=== PATIENT | female | born 1960 | race Caucasian/White ===

== ENCOUNTER → 2017-07-10 | Outpatient (CLI) | payer OTHER ==
--- NOTE | 2017-07-10 11:34 | BD ---
EXAMINATION TYPE: MG DEXA axial skeleton. DATE OF EXAM: 07/10/2017 CLINICAL HISTORY: Menopausal screening. Height: 63.25 Weight: 140 pounds FRAX RISK QUESTIONS: Alcohol (3 or more units per day): no Family History (Parent hip fracture): no Glucocorticoids (More than 3mos): no (Ex: prednisone, prednisolone, methylprednisolone, dexamethasone, and hydrocortisone). History of Fracture in Adulthood: yes, thumb as young adult Secondary Osteoporosis: 1. Type 1 Diabetes: no 2. Hyperthyroidism: no 3. Menopause before 45: no 4. Malnutrition: no 5. Chronic liver disease: no Rheumatoid Arthritis: no Current Tobacco Use: yes RISK FACTORS HISTORY OF: Surgery to Spine/Hip(right/left)/Wrist (right/left): no Family History of Osteoporosis: no Active: yes Diet low in dairy products/other sources of calcium: no Postmenopausal woman: yes Take estrogen and/or progesterone medications: no Lost more than 2 inches in height since high school: no Frequent falls: no Poor Health: no Hyperparathyroidism: no Adrenal Insufficiency: no MEDICATIONS: Prednisone or other steroids: no Thyroid Medications: no Osteoporosis Medications: no Additional Medications: cholesterol meds Additional History: osteoarthritis cervical & lumbar regions EXAM MEASUREMENTS: Bone mineral densitometry was performed using the [employer] System. Bone mineral density as measured about the Lumbar spine is: ----- L1-L4(G/cm2): 1.170 T Score Values are as follows: ----- L2: -0.3 ----- L3: 0.4 ----- L4: -0.4 ----- L1-L4: -0.1 Bone mineral density BASELINE Bone mineral density about the R hip (g/cm2): 0.931 Bone mineral density about the L hip (g/cm2): 0.902 T Score values are as follows: -----R Neck: -0.8 -----L Neck: -1.0 -----R Total: -0.3 -----L Total: -0.6 Bone mineral density BASELINE IMPRESSION: 1. Normal (Values between +1 and -1 indicate normal bone mass). Consider repeating this study in 5 y ears or sooner if there is some new clinical indication. NOTE: T-SCORE=SD OF THE YOUNG ADULT MEAN.
--- NOTE | 2017-07-11 10:59 | MM ---
Reason for exam: screening (asymptomatic). Last mammogram was performed 6 years and 3 months ago. History: Family history of breast cancer in sister at age 55. Physical Findings: A clinical breast exam by your physician is recommended on an annual basis and results should be correlated with mammographic findings. MG 3D Screening Mammo W/Cad Bilateral CC and MLO view(s) were taken. Prior study comparison: April 12, 2011, bilateral digital screening mammo w/CAD. December 11, 2006, mammogram, performed at [facility]. There are scattered fibroglandular densities. No significant changes when compared with prior studies. ASSESSMENT: Benign, BI-RAD 2 RECOMMENDATION: Routine screening mammogram of both breasts in 1 year.
== END | disposition home or self-care (01) ==
LOC: RADMAMWWP 07:54
PROVIDERS: ATTEND Family Medicine
DX: Z12.31 Encounter for screening mammogram for malignant neoplasm of breast (principal); N95.1 Menopausal and female climacteric states
CPT/HCPCS: 77080; 77063; G0202

== ENCOUNTER → 2019-03-01 | Outpatient (CLI) | payer OTHER ==
--- NOTE | 2019-03-01 15:37 | XR ---
EXAMINATION TYPE: XR chest 2V DATE OF EXAM: 03/01/2019 COMPARISON: NONE TECHNIQUE: PA and lateral views submitted. HISTORY: Pain FINDINGS: The lungs are clear and there is no pneumothorax, pleural effusion, or focal pneumonia. Hyperinflat ion correlate for COPD. Atherosclerotic change aorta. Hypertrophic change vertebral column. Could not exclude a retrocardiac nodule. Correlate with CT scan. IMPRESSION: 1. No acute process. Cannot exclude a 1 cm retrocardiac nodule on the left recommend CT scan.
--- NOTE | 2019-03-01 15:39 | XR ---
EXAMINATION TYPE: XR abdomen 1V DATE OF EXAM: 03/01/2019 COMPARISON: NONE HISTORY: Pain TECHNIQUE: One view abdominal series FINDINGS: The osseous structures are intact. The bowel gas pattern is nonspecific. Curvature the spine. There is retained fecal debris throughout the colon. Correlate for constipation. Degenerative change of the vertebral column. IMPRESSION: 1. Nonspecific abdomen. Correlate for constipation.
== END | disposition home or self-care (01) ==
LOC: RADXRMAIN 15:04
PROVIDERS: ATTEND Family Medicine
DX: R10.12 Left upper quadrant pain (principal); R07.81 Pleurodynia
CPT/HCPCS: 71046; 74018

== ENCOUNTER → 2019-03-04 | Outpatient (CLI) | payer OTHER ==
--- NOTE | 2019-03-04 08:32 | CT ---
EXAMINATION TYPE: CT chest w con DATE OF EXAM: 03/04/2019 COMPARISON: Radiograph 03/01/2019 HISTORY: 59-year-old female other nonspecific abnormal findings of lung patrick. Pain under left ribs TECHNIQUE: Contiguous axial scanning of the chest after the administration of 100 mL of Isovue 300. Coronal/sagittal reconstructions performed. CT DLP: 333.1mGycm. Automatic exposure control utilized for a dose reduction. FINDINGS: Heart normal size with trace anterior pericardial fluid. Coronary vessel calcifications are present. Aorta normal caliber with mild arch calcifications and conventional arch vessel branching anatomy. No thoracic lymphadenopathy by CT size criteria. Visualized upper abdomen shows a prominent centrally located right hepatic lobe cyst partially exophy tic inferiorly measuring up to 5.7 cm. Bilateral adrenal nodularity measuring 1.9 cm the right and 1. 4 cm left. While visually, there appear relatively low density, attenuation is indeterminate on this postcontrast study. Six-month follow-up recommended. Mild diffuse bronchial wall thickening. Some scattered areas of mild subpleural atelectasis such as i n the anteromedial left lung and medial basilar right middle lobe. No consolidation or pleural effusion. The questioned retrocardiac pulmonary nodule on radiograph appe ars to correspond to summation artifact. Bones: No osseous destructive process. Facet arthropathy cervicothoracic junction with grade 1 albino listhesis. There is a very subtle nondisplaced left lateral eighth rib fracture, or transaxial image 47, coronal image 35, and sagittal image 102. IMPRESSION: 1. Very subtle nondisplaced fracture of the left lateral eighth rib. 2. Mild diffuse bronchial wall thickening could represent bronchitis or asthma. Some scattered strand y atelectasis is present but otherwise without acute process. 3. No suspicious pulmonary nodules. Questioned radiographic finding corresponds to summation artifact . 4. Bilateral adrenal nodularity measuring up to 1.9 cm, probable adrenal adenomas. 6 month follow-up adrenal mass protocol CT recommended. 5. 5.7 cm partially exophytic cyst central right liver lobe.
== END | disposition home or self-care (01) ==
LOC: RADCTMAIN 07:17
PROVIDERS: ATTEND Family Medicine
DX: S22.32XA Fracture of one rib, left side, initial encounter for closed fracture (principal); J98.11 Atelectasis; R91.8 Other nonspecific abnormal finding of lung field
CPT/HCPCS: 71260; Q9967

== ENCOUNTER 2020-01-16 07:23 | Inpatient (IN) | payer OTHER ==
[2020-01-16] MEDS ORDERED: ONDANSETRON 4 MG/2 ML VIAL IVP STA (07:39)
[2020-01-16] MEDS ORDERED: MORPHINE SULFATE 4 MG/ML SYRINGE IV STA (07:39)
[2020-01-16] MEDS ORDERED: SODIUM CHLORIDE 0.9% 1,000 ML IV STA (07:39)
--- NOTE | 2020-01-16 07:42 | ED ---
Abdominal Pain HPI - General Chief Complaint: Abdominal Pain Stated Complaint: Abd Pain Time Seen by Provider: 01/16/20 07:31 Source: patient, RN notes reviewed Mode of arrival: ambulatory Limitations: no limitations - History of Present Illness Initial Comments: This a 59-year-old female presents emergency Department chief complaint of right lower quadrant abdominal discomfort. Patient states started primarily on Friday states has really worsened. She states that any pressure over abdomen movement make it worse. She states she's had slight nausea without any episodes of vomiting diarrhea. She states she's not had a bowel movement in a few days no prior abdominal surgeries. She states that she had a low-grade fever at home. She has no complaints of dysuria or hematuria. Patient has no complaints chest pain, shortness breath, headache or dizziness. - Related Data Allergies Allergy/AdvReac Type Severity Reaction Status Date / Time No Known Allergies Allergy Verified 01/16/20 07:29 Review of Systems ROS Statement: Those systems with pertinent positive or pertinent negative responses have been documented in the HPI. ROS Other: All systems not noted in ROS Statement are negative. Past Medical History Past Medical History: Hyperlipidemia History of Any Multi-Drug Resistant Organisms: None Reported Past Surgical History: Tonsillectomy Past Psychological History: Anxiety Smoking Status: Current every day smoker Past Alcohol Use History: Occasional Past Drug Use History: None Reported General Exam Limitations: no limitations General appearance: alert, in no apparent distress Head exam: Present: atraumatic, normocephalic, normal inspection Neck exam: Present: normal inspection, full ROM. Absent: tenderness, meningismus, lymphadenopathy Respiratory exam: Present: normal lung sounds bilaterally. Absent: respiratory distress, wheezes, rales, rhonchi, stridor Cardiovascular Exam: Present: normal rhythm, tachycardia, normal heart sounds. Absent: systolic murmur, diastolic murmur, rubs, gallop, clicks GI/Abdominal exam: Present: soft, tenderness (Moderate right lower quadrant), normal bowel sounds. Absent: distended, guarding, rebound, rigid Back exam: Absent: CVA tenderness (R), CVA tenderness (L) Neurological exam: Present: alert, oriented X3 Skin exam: Present: warm, dry, intact, normal color. Absent: rash Course Vital Signs 01/16/20 07:26 Temperature 98.2 F Pulse Rate 115 H Respiratory 18 Rate Blood Pressure 138/85 O2 Sat by Pulse 99 Oximetry Medical Decision Making - Medical Decision Making CT shows evidence of acute appendicitis. Patient will be admitted to Dr. Peterson with IV antibiotics. - Lab Data Result diagrams: 01/16/20 07:57 01/16/20 07:57 Lab Results 01/16/20 01/16/20 01/16/20 Range/Units 07:40 07:57 07:57 WBC 15.3 H (3.8-10.6) k/uL RBC 4.91 (3.80-5.40) m/uL Hgb 14.3 (11.4-16.0) gm/dL Hct 43.2 (34.0-46.0) % MCV 88.0 (80.0-100.0) fL MCH 29.2 (25.0-35.0) pg MCHC 33.1 (31.0-37.0) g/dL RDW 12.7 (11.5-15.5) % Plt Count 206 (150-450) k/uL Neutrophils % 84 % Lymphocytes % 9 % Monocytes % 5 % Eosinophils % 1 % Basophils % 0 % Neutrophils # 12.8 H (1.3-7.7) k/uL Lymphocytes # 1.3 (1.0-4.8) k/uL Monocytes # 0.7 (0-1.0) k/uL Eosinophils # 0.1 (0-0.7) k/uL Basophils # 0.0 (0-0.2) k/uL Sodium 133 L (137-145) mmol/L Potassium 4.4 (3.5-5.1) mmol/L Chloride 103 (98-107) mmol/L Carbon Dioxide 21 L (22-30) mmol/L Anion Gap 9 mmol/L BUN 8 (7-17) mg/dL Creatinine 0.62 (0.52-1.04) mg/dL Est GFR (CKD-EPI)AfAm >90 (>60 ml/min/1.73 sqM) Est GFR (CKD-EPI)NonAf >90 (>60 ml/min/1.73 sqM) Glucose 127 H (74-99) mg/dL Plasma Lactic Acid Azam (0.7-2.0) mmol/L Calcium 8.8 (8.4-10.2) mg/dL Total Bilirubin 0.7 (0.2-1.3) mg/dL AST 23 (14-36) U/L ALT 25 (4-34) U/L Alkaline Phosphatase 43 (38-126) U/L Total Protein 6.9 (6.3-8.2) g/dL Albumin 4.0 (3.5-5.0) g/dL Lipase 815 H (23-300) U/L Urine Color Yellow Urine Appearance Cloudy H (Clear) Urine pH 6.0 (5.0-8.0) Ur Specific [place] 1.020 (1.001-1.035) Urine Protein Trace H (Negative) Urine Glucose (UA) Negative (Negative) Urine Ketones Negative (Negative) Urine Blood Moderate H (Negative) Urine Nitrite Negative (Negative) Urine Bilirubin Negative (Negative) Urine Urobilinogen 2.0 (<2.0) mg/dL Ur Leukocyte Esterase Small H (Negative) Urine RBC 28 H (0-5) /hpf Urine WBC 2 (0-5) /hpf Ur Squamous Epith Cells 2 (0-4) /hpf Urine Mucus Few H (None) /hpf 01/16/20 Range/Units 07:57 WBC (3.8-10.6) k/uL RBC (3.80-5.40) m/uL Hgb (11.4-16.0) gm/dL Hct (34.0-46.0) % MCV (80.0-100.0) fL MCH (25.0-35.0) pg MCHC (31.0-37.0) g/dL RDW (11.5-15.5) % Plt Count (150-450) k/uL Neutrophils % % Lymphocytes % % Monocytes % % Eosinophils % % Basophils % % Neutrophils # (1.3-7.7) k/uL Lymphocytes # (1.0-4.8) k/uL Monocytes # (0-1.0) k/uL Eosinophils # (0-0.7) k/uL Basophils # (0-0.2) k/uL Sodium (137-145) mmol/L Potassium (3.5-5.1) mmol/L Chloride (98-107) mmol/L Carbon Dioxide (22-30) mmol/L Anion Gap mmol/L BUN (7-17) mg/dL Creatinine (0.52-1.04) mg/dL Est GFR (CKD-EPI)AfAm (>60 ml/min/1.73 sqM) Est GFR (CKD-EPI)NonAf (>60 ml/min/1.73 sqM) Glucose (74-99) mg/dL Plasma Lactic Acid Azam 0.9 (0.7-2.0) mmol/L Calcium (8.4-10.2) mg/dL Total Bilirubin (0.2-1.3) mg/dL AST (14-36) U/L ALT (4-34) U/L Alkaline Phosphatase (38-126) U/L Total Protein (6.3-8.2) g/dL Albumin (3.5-5.0) g/dL Lipase (23-300) U/L Urine Color Urine Appearance (Clear) Urine pH (5.0-8.0) Ur Specific [place] (1.001-1.035) Urine Protein (Negative) Urine Glucose (UA) (Negative) Urine Ketones (Negative) Urine Blood (Negative) Urine Nitrite (Negative) Urine Bilirubin (Negative) Urine Urobilinogen (<2.0) mg/dL Ur Leukocyte Esterase (Negative) Urine RBC (0-5) /hpf Urine WBC (0-5) /hpf Ur Squamous Epith Cells (0-4) /hpf Urine Mucus (None) /hpf Disposition Clinical Impression: Acute appendicitis Disposition: ADMITTED IP TO THIS HOSP Condition: Fair Referrals: Vladimir Fernandez DO [Primary Care Provider] - 1-2 days
[2020-01-16 08:12] LABS: Basophils % (A) 0 %; Eosinophils # (A) 0.1 k/uL (0-0.7); Eosinophils % (A) 1 %; HCT 43.2 % (34.0-46.0); HGB 14.3 gm/dL (11.4-16.0); Lymphocytes # (A) 1.3 k/uL (1.0-4.8); Lymphocytes % (A) 9 %; MCH 29.2 pg (25.0-35.0); MCHC 33.1 g/dL (31.0-37.0); Mean Platelet Volume 8.4; Monocytes # (A) 0.7 k/uL (0-1.0); Monocytes % (A) 5 %; Neutrophils # (A) 12.8 k/uL (1.3-7.7); Neutrophils % (A) 84 %; Platelet Count 206 k/uL (150-450); RBC 4.91 m/uL (3.80-5.40); RDW 12.7 % (11.5-15.5); WBC 15.3 k/uL (3.8-10.6)
[2020-01-16 08:22] LABS: ALT 25 U/L (4-34); AST 23 U/L (14-36); African American GFR (CKD) >90 (>60 ml/min/1.73 sqM); Alkaline Phosphatase 43 U/L (38-126); Anion Gap 9 mmol/L; Blood Urea Nitrogen 8 mg/dL (7-17); Calcium 8.8 mg/dL (8.4-10.2); Carbon Dioxide 21 mmol/L (22-30); Chloride 103 mmol/L (98-107); Glucose 127 mg/dL (74-99); Non-African American GFR(CKD) >90 (>60 ml/min/1.73 sqM); Potassium 4.4 mmol/L (3.5-5.1); Sodium 133 mmol/L (137-145); Total Bilirubin 0.7 mg/dL (0.2-1.3); Total Protein 6.9 g/dL (6.3-8.2)
[2020-01-16 08:29] LABS: Appearance,Urine Cloudy (Clear); Bilirubin,Urine Negative (Negative); Blood,Urine Moderate (Negative); Color,Urine Yellow; Glucose,Urine (UA) Negative (Negative); Ketones,Urine Negative (Negative); Leukocyte Esterase,Urine Small (Negative); Mucus,Urine Few /hpf; Nitrite,Urine Negative (Negative); Protein,Urine Trace (Negative); RBC,Urine 28 /hpf (0-5); Squamous Epithelial Cell,Urine 2 /hpf (0-4); WBC,Urine 2 /hpf (0-5)
--- NOTE | 2020-01-16 08:49 | CT ---
EXAMINATION TYPE: CT abdomen pelvis w con DATE OF EXAM: 01/16/2020 REFERENCE: NONE HISTORY: RLQ pain HISTORY: RLQ pain CT DLP: 833.3 mGy Automated exposure control for dose reduction was used. TECHNIQUE: Helical acquisition through the abdomen and pelvis was obtained following the oral ingesti on of without Oral Contrast and following intravenous administration of 100 ml mL of Isovue 300. The data was reformatted in axial, coronal and sagittal projections. FINDINGS: Visualized portions of the lungs are clear. There is approximately 5.5 mm of pericardial f luid or thickening anteriorly. There is no pleural fluid. Within the abdomen, the liver is normal in size without biliary dilatation. There is a prominent, sim ple appearing, 4.8 cm cystic lesion in the caudate lobe. The liver is otherwise unremarkable. The gal lbladder is normal. The spleen is unremarkable. There are bilateral adrenal masses. The right-sided mass measures 1.6 cm in the left-sided mass measu res 1.3 cm. These are both low in attenuation and likely represent adenomas. Both kidneys demonstrate function and appear morphologically normal. The pancreas is unremarkable. There is mild to moderate atheromatous calcification of the visualized arterial tree. There is no sig nificant retroperitoneal, iliac or inguinal adenopathy. The bladder is unremarkable. The uterus and ovaries are unremarkable. There are scattered diverticula within the sigmoid colon and left side of the colon. There is no radi ographic evidence of diverticulitis. There is a moderate amount of fecal material present on the righ t. There is some pericecal inflammatory change and some pericecal fluid. The appendix is not clearly visualized separate from this. Small bowel loops are normal in caliber. No free air is seen. No free fluid is identified. There is mild facet arthropathy in the L5-S1 facets.. IMPRESSION: 1. PERICECAL INFLAMMATORY CHANGE AND A SMALL AMOUNT OF PERICECAL FLUID WITHOUT A DRAINABLE ABSCESS. T HE APPENDIX IS NOT DISTINGUISHED SEPARATE FROM THIS. IF THE PATIENT DOES NOT HAVE A HISTORY OF APPEND ECTOMY THIS WOULD BE CONSISTENT WITH ACUTE APPENDICITIS. IF THE PATIENT HAS HAD HER APPENDIX OUT, TYP HLITIS COULD GIVE THIS APPEARANCE. 2. SIMPLE APPEARING HEPATIC CYST WITHIN THE CAUDATE LOBE OF THE LIVER.
[2020-01-16] MEDS ORDERED: PIPERACILLIN-TAZOBACTAM 3.375 GM in SODIUM CHLORIDE 0.9% 100 ML IVPB STA (08:53)
[2020-01-16] MEDS ORDERED: NALOXONE 0.4 MG/ML 1 ML VIAL IV PRN ×2 (08:55→15:04)
[2020-01-16] MEDS ORDERED: ONDANSETRON 4 MG/2 ML VIAL IVP PRN (08:55)
--- NOTE | 2020-01-16 11:07 | P.GSHP ---
History of Present Illness H&P Date: 01/16/20 Chief Complaint: Right lower quadrant pain This is a 5-year-old female who presents with a three-day history of right lower quadrant pain. Patient underwent CAT scan emergency room found have evidence of acute appendicitis. Past Medical History Past Medical History: Hyperlipidemia History of Any Multi-Drug Resistant Organisms: None Reported Past Surgical History: Tonsillectomy Past Psychological History: Anxiety Smoking Status: Current every day smoker Past Alcohol Use History: Occasional Past Drug Use History: None Reported Medications and Allergies Allergies Allergy/AdvReac Type Severity Reaction Status Date / Time No Known Allergies Allergy Verified 01/16/20 07:29 Surgical - Exam Vital Signs Temp Pulse Resp BP Pulse Ox 98.2 F 115 H 18 138/85 99 01/16/20 07:26 01/16/20 07:26 01/16/20 07:26 01/16/20 07:26 01/16/20 07:26 - General well developed, well nourished, no distress - Eyes PERRL - ENT normal pinna - Neck no masses - Respiratory normal expansion - Cardiovascular Rhythm: regular - Abdomen Tender right lower quadrant pain at McBurney's point Abdomen: soft Results - Labs 01/16/20 07:57 01/16/20 07:57 Abnormal Lab Results - Last 24 Hours (Table) 01/16/20 01/16/20 01/16/20 Range/Units 07:40 07:57 07:57 WBC 15.3 H (3.8-10.6) k/uL Neutrophils # 12.8 H (1.3-7.7) k/uL Sodium 133 L (137-145) mmol/L Carbon Dioxide 21 L (22-30) mmol/L Glucose 127 H (74-99) mg/dL Lipase 815 H (23-300) U/L Urine Appearance Cloudy H (Clear) Urine Protein Trace H (Negative) Urine Blood Moderate H (Negative) Ur Leukocyte Esterase Small H (Negative) Urine RBC 28 H (0-5) /hpf Urine Mucus Few H (None) /hpf Diabetes panel 01/16/20 Range/Units 07:57 Sodium 133 L (137-145) mmol/L Potassium 4.4 (3.5-5.1) mmol/L Chloride 103 (98-107) mmol/L Carbon Dioxide 21 L (22-30) mmol/L BUN 8 (7-17) mg/dL Creatinine 0.62 (0.52-1.04) mg/dL Glucose 127 H (74-99) mg/dL Calcium 8.8 (8.4-10.2) mg/dL AST 23 (14-36) U/L ALT 25 (4-34) U/L Alkaline Phosphatase 43 (38-126) U/L Total Protein 6.9 (6.3-8.2) g/dL Albumin 4.0 (3.5-5.0) g/dL Calcium panel 01/16/20 Range/Units 07:57 Calcium 8.8 (8.4-10.2) mg/dL Albumin 4.0 (3.5-5.0) g/dL Pituitary panel 01/16/20 Range/Units 07:57 Sodium 133 L (137-145) mmol/L Potassium 4.4 (3.5-5.1) mmol/L Chloride 103 (98-107) mmol/L Carbon Dioxide 21 L (22-30) mmol/L BUN 8 (7-17) mg/dL Creatinine 0.62 (0.52-1.04) mg/dL Glucose 127 H (74-99) mg/dL Calcium 8.8 (8.4-10.2) mg/dL Adrenal panel 01/16/20 Range/Units 07:57 Sodium 133 L (137-145) mmol/L Potassium 4.4 (3.5-5.1) mmol/L Chloride 103 (98-107) mmol/L Carbon Dioxide 21 L (22-30) mmol/L BUN 8 (7-17) mg/dL Creatinine 0.62 (0.52-1.04) mg/dL Glucose 127 H (74-99) mg/dL Calcium 8.8 (8.4-10.2) mg/dL Total Bilirubin 0.7 (0.2-1.3) mg/dL AST 23 (14-36) U/L ALT 25 (4-34) U/L Alkaline Phosphatase 43 (38-126) U/L Total Protein 6.9 (6.3-8.2) g/dL Albumin 4.0 (3.5-5.0) g/dL Assessment and Plan Assessment: Acute appendicitis. Patient will undergo laparoscopic appendectomy today.
[2020-01-16] MEDS: SODIUM CHLORIDE 0.9% 1,000 ML IV SCH ×2 (12:29→21:08)
[2020-01-16] MEDS: MORPHINE SULFATE 4 MG/ML SYRINGE IV PRN (12:38)
[2020-01-16] MEDS ORDERED: BUPIVACAIN-EPI 0.25%-1:200,000 30 ML VIAL SQ ONE (13:41)
[2020-01-16] MEDS ORDERED: PHENYLEPHRINE-0.9% NACL SYG 1 MG/10 ML SYRINGE ONE (14:20)
[2020-01-16] MEDS ORDERED: ROCURONIUM BROMIDE 10 MG/ML 5 ML VIAL IV ONE (14:20)
[2020-01-16] MEDS ORDERED: NEOSTIGMINE 1 MG/ML 10 ML VIAL ONE (14:20)
[2020-01-16] MEDS ORDERED: fentaNYL (PF) 50 MCG/ML 2 ML AMP ONE (14:20)
[2020-01-16] MEDS ORDERED: PROPOFOL 10 MG/ML 20 ML VIAL IV ONE (14:20)
[2020-01-16] MEDS ORDERED: GLYCOPYRROLATE 0.2 MG/ML 2 ML VIAL ONE (14:20)
[2020-01-16] MEDS ORDERED: MIDAZOLAM 2 MG/2 ML VIAL ONE (14:20)
[2020-01-16] MEDS ORDERED: SUCCINYLCHOLINE CHLORIDE 100 MG/5 ML SYR IV ONE (14:20)
[2020-01-16] MEDS ORDERED: LIDOCAINE 1% INJ 10MG/ML (20 ML MDV) ONE (14:20)
[2020-01-16] MEDS ORDERED: SODIUM CHLORIDE 0.9% 1,000 ML IV ONE (14:23)
[2020-01-16] MEDS ORDERED: ceFAZolin 1,000 MG VIAL IVPB ONE (14:35)
[2020-01-16] MEDS ORDERED: LACTATED RINGERS 1,000 ML IV ONE ×2 (15:04→15:59)
[2020-01-16] MEDS ORDERED: METOCLOPRAMIDE 5 MG/ML 2 ML VIAL IVP PRN (15:04)
[2020-01-16] MEDS ORDERED: ACETAMINOPHEN TAB 325 MG TAB PO PRN (15:04)
--- NOTE | 2020-01-16 15:04 | P.OP ---
Date of Procedure: 01/16/20 Preoperative Diagnosis: Acute appendicitis Postoperative Diagnosis: Perforated appendicitis Procedure(s) Performed: Laparoscopic appendectomy Anesthesia: NILSA Surgeon: Hemant Peterson IV fluids (ml): 5 Pathology: other (Appendix) Condition: stable Disposition: PACU Description of Procedure: The patient's placed on the operating table in the supine position. The patient received general anesthesia. The abdomen was prepped and draped in the usual sterile fashion. The skin was anesthetized 1% local Xylocaine at the trocar sites. Using an 11 blade the skin was incised at the umbilicus. The umbilicus was grasped with a [place] clamp and then a Veress needle was placed into the peritoneal cavity. Position of the Veress needle was confirmed with positive drop test. After adequate insufflation a 5 mm trocar was placed into the peritoneal cavity. The abdomen was further insufflated. And then the laparoscope was placed in the peritoneal cavity. Next a 5 mm trocar was placed in the midline suprapubic position. And then a 10 mm trocar was placed in the midline epigastric position. The patient was rotated with the right side up and in Trendelenburg. The appendix was visualized. The appendix appeared to be inflamed. There appeared to be perforation near the base the appendix. The appendix was grasped and then using the Harmonic scissors the mesoappendix was divided. A PDS Endoloop was then placed around the base of the appendix. And then the appendix was divided using Harmonic scissors. The appendix was placed into an Endo Catch and brought out through the 10 mm trocar site. The abdomen was irrigated. There is no bleeding seen. The trochars withdrawn. The skin was closed interrupted 3-0 Monocryl suture. Dermabond dressing was applied. Patient was sent to recovery room in stable condition.
[2020-01-16] MEDS: HYDROmorphone 0.5 MG/0.5 ML SYRINGE IVP PRN ×2 (15:41→15:47)
[2020-01-16] MEDS: HYDROcodone/APAP 5-325MG 1 EACH TAB PO PRN (22:18)
[2020-01-17 06:29] LABS: Basophils % (A) 0 %; Eosinophils % (A) 0 %; HCT 38.2 % (34.0-46.0); HGB 11.9 gm/dL (11.4-16.0); Lymphocytes # (A) 1.4 k/uL (1.0-4.8); Lymphocytes % (A) 13 %; MCH 28.5 pg (25.0-35.0); MCHC 31.2 g/dL (31.0-37.0); MCV 91.3 fL (80.0-100.0); Mean Platelet Volume 8.9; Monocytes # (A) 0.6 k/uL (0-1.0); Monocytes % (A) 5 %; Neutrophils # (A) 9.1 k/uL (1.3-7.7); Neutrophils % (A) 80 %; Platelet Count 153 k/uL (150-450); RBC 4.18 m/uL (3.80-5.40); RDW 12.9 % (11.5-15.5); WBC 11.4 k/uL (3.8-10.6)
[2020-01-17 06:45] LABS: African American GFR (CKD) >90 (>60 ml/min/1.73 sqM); Anion Gap 2 mmol/L; Blood Urea Nitrogen 7 mg/dL (7-17); Calcium 7.8 mg/dL (8.4-10.2); Carbon Dioxide 21 mmol/L (22-30); Chloride 110 mmol/L (98-107); Glucose 88 mg/dL (74-99); Non-African American GFR(CKD) >90 (>60 ml/min/1.73 sqM); Potassium 4.1 mmol/L (3.5-5.1); Sodium 133 mmol/L (137-145)
[2020-01-17] MEDS: HYDROcodone/APAP 5-325MG 1 EACH TAB PO PRN ×3 (07:38→19:40)
[2020-01-17] MEDS: ENOXAPARIN 40 MG/0.4 ML SYRINGE SQ SCH (07:39)
[2020-01-17] MEDS: PIPERACILLIN-TAZOBACTAM 3.375 GM in SODIUM CHLORIDE 0.9% 100 ML IVPB SCH ×2 (10:04→18:40)
--- NOTE | 2020-01-17 10:22 | P.PN ---
Subjective Progress Note Date: 01/17/20 CHIEF COMPLAINT: Abdominal pain HISTORY OF PRESENT ILLNESS: Patient is status post laparoscopic appendectomy. Postop day #1. Patient examined at the bedside. Patient states her pain is tolerable. Tolerating diet. Denies nausea or vomiting. PHYSICAL EXAM: VITAL SIGNS: Reviewed. GENERAL: Well-developed in no acute distress. HEENT: No sclera icterus. Extraocular movements grossly intact. Moist buccal mucosa. Head is atraumatic, normocephalic. ABDOMEN: Soft. Nondistended. Appropriate surgical tenderness. Surgical sites clean dry and intact. NEUROLOGIC: Alert and oriented. Cranial nerves II through XII grossly intact. ASSESSMENT: 1. Abdominal pain 2. Acute appendicitis with microperforation PLAN: -Continue diet as tolerated -Pain control -Continue IV antibiotics -Anticipate discharge home tomorrow Nurse practitioner note has been reviewed by physician. Signing provider agrees with the documented findings, assessment, and plan of care. Objective - Vital Signs Vital signs: Vital Signs Temp 99.2 F 01/17/20 05:00 Pulse 100 01/17/20 05:00 Resp 18 01/17/20 05:00 BP 151/70 01/17/20 05:00 Pulse Ox 93 L 01/17/20 05:00 Intake & Output 01/16/20 01/17/20 01/17/20 18:59 06:59 18:59 Intake Total 1330 825 Output Total 5 Balance 1325 825 Weight 73.074 kg Intake: IV 600 Intake, IV Titration 250 825 Amount Piperacillin-Tazobactam 3 100 .375 gm In Sodium Chloride 0.9% 100 ml @ 200 mls/hr IVPB ONCE STA Rx#:[id number] Sodium Chloride 0.9% 1, 150 825 000 ml @ 75 mls/hr IV . [id number] [facility] Rx#:[id number] Oral 480 Output: Estimated Blood Loss 5 Other: Voiding Method Toilet Toilet # Voids 2 1 - Labs CBC & Chem 7: 01/18/20 05:30 01/17/20 05:22 Labs: Abnormal Lab Results - Last 24 Hours (Table) 01/17/20 01/17/20 Range/Units 05:22 05:22 WBC 11.4 H (3.8-10.6) k/uL Neutrophils # 9.1 H (1.3-7.7) k/uL Sodium 133 L (137-145) mmol/L Chloride 110 H (98-107) mmol/L Carbon Dioxide 21 L (22-30) mmol/L Calcium 7.8 L (8.4-10.2) mg/dL
[2020-01-17] MEDS: MORPHINE SULFATE 4 MG/ML SYRINGE IV PRN (10:25)
[2020-01-17] MEDS: SODIUM CHLORIDE 0.9% 1,000 ML IV SCH (10:26)
--- NOTE | 2020-01-17 12:36 | P.CONS ---
History of Present Illness - Reason for Consult Consult date: 01/17/20 Medical management - History of Present Illness This is a 59-year-old female patient of Dr. Fernandez with past medical history of hyperlipidemia, generalized anxiety disorder, tobacco use and dependence. Patient complains of abdominal pain that started Friday evening on the right side. She denies having any vomiting but the pain continued to worsen and became very intense with radiation to the back. She denies any bowel movement. She denies diarrhea. Patient presented to [facility] emergency center for evaluation CAT scan of the abdomen and pelvis revealed pericecal inflammatory change and a small amount of pericecal fluid without drainable abscess. Appendix is not distinguished supper from this. This could be consistent with acute appendicitis. Simple hepatic cyst. WBC 15.3, hemoglobin 14.3, platelet count 206. Sodium 133, potassium 4.4, chloride 103, CO2 21, BUN 8, creatinine 0.62, blood sugar 127. Liver function tests within normal limits, lipase 815. Patient has been admitted to the [facility] floor under the care of Dr. Peterson status post laparoscopic appendectomy for perforated appendicitis completed yesterday. Temperature max is been 100.7 and white count has improved to 11.4. Pain is currently controlled. She is not passing gas but she is burping fr equently. She states she feels a little nauseated. Review of Systems Constitutional: Denies anorexia, Denies chills, Denies fatigue, Denies fever, Denies lethargy, Denies weakness, Denies weight loss Eyes: denies blurred vision, denies pain Ears, nose, mouth and throat: Denies headache, Denies nasal congestion, Denies nasal discharge, Denies sore throat, Denies vertigo Cardiovascular: Denies chest pain, Denies decreased exercise tolerance, Denies dyspnea on exertion, Denies edema, Denies leg edema, Denies lightheadedness, Denies shortness of breath, Denies syncope Respiratory: Denies cough, Denies cough with sputum, Denies dyspnea, Denies excessive sputum, Denies hemoptysis, Denies home oxygen, Denies respiratory infections, Denies wheezing Gastrointestinal: Reports abdominal pain, Reports loss of appetite, Denies BRBPR, Denies constipation, Denies diarrhea, Denies hematemesis, Denies hematochezia, Denies jaundice, Denies melena, Denies nausea, Denies vomiting Genitourinary: Denies dysuria, Denies hematuria, Denies urgency, Denies urinary frequency Musculoskeletal: Denies frequent falls, Denies gait dysfunction, Denies muscle weakness, Denies myalgias Integumentary: Denies pruritus, Denies rash, Denies wounds Neurological: Denies change in mentation, Denies change in speech, Denies gait dysfunction, Denies numbness, Denies weakness Psychiatric: Denies anxiety, Denies depression Endocrine: Denies fatigue, Denies weight change Past Medical History Past Medical History: Hyperlipidemia History of Any Multi-Drug Resistant Organisms: None Reported Past Surgical History: Appendectomy, Tonsillectomy Past Psychological History: Anxiety Smoking Status: Current every day smoker Past Alcohol Use History: Occasional Additional Past Alcohol Use History / Comment(s): Patient is a smoker of half a pack per day and has been smoking approximately 45 years. She drinks alcohol occasionally. Past Drug Use History: None Reported - Past Family History Father Family Medical History: Hearing Disorder / Deafness, Hyperlipidemia Additional Family Medical History / Comment(s): Father at age 65 from a myocardial infarction. Mother Family Medical History: Rheumatoid Arthritis (RA) Additional Family Medical History / Comment(s): Mother at age 66 from a perforated bowel with history of rheumatoid arthritis. Brother(s) Additional Family Medical History / Comment(s): Patient has 1 brother alive and he has suffered from a myocardial infarction. Sister(s) Additional Family Medical History / Comment(s): Patient has 3 sisters with no major medical problems. Patient has 1 son and 1 daughter with no major medical problems. Medications and Allergies Home Medications Medication Instructions Recorded Confirmed Type Jhucksf-[id number]-[id number] 2 tab PO Q4HR PRN 01/16/20 01/16/20 History [Excedrin] LORazepam [Ativan] 0.5 - 1 mg PO BID PRN 01/16/20 01/16/20 History Naproxen Sodium [Aleve] 440 mg PO DAILY PRN 01/16/20 01/16/20 History Simvastatin [Zocor] 20 mg PO HS 01/16/20 01/16/20 History Hydrocodone/Acetaminophen [[place] 1 tab PO Q6HR PRN #10 tab 03/30/20 Rx 5-325] Allergies Allergy/AdvReac Type Severity Reaction Status Date / Time No Known Allergies Allergy Verified 01/16/20 11:15 Physical Exam Vitals: Vital Signs Temp Pulse Pulse Pulse Pulse Resp BP 01/17/20 05:00 99.2 F 100 18 01/16/20 23:56 99.1 F 01/16/20 22:18 100.7 F H 01/16/20 19:23 98.0 F 104 H 18 01/16/20 17:05 94 01/16/20 16:50 85 01/16/20 16:35 95 01/16/20 16:20 98.5 F 88 16 01/16/20 16:01 90 18 01/16/20 16:00 90 94 16 01/16/20 15:46 95 18 01/16/20 15:31 86 18 01/16/20 15:09 96.9 F L 90 18 01/16/20 12:06 99 16 01/16/20 10:33 99.1 F 99 16 01/16/20 09:40 97.9 F 80 16 117/61 BP Pulse Ox 01/17/20 05:00 151/70 93 L 01/16/20 23:56 01/16/20 22:18 01/16/20 19:23 112/75 98 01/16/20 17:05 111/67 01/16/20 16:50 105/58 98 01/16/20 16:35 98/60 96 01/16/20 16:20 91/57 96 01/16/20 16:01 90/52 97 01/16/20 16:00 01/16/20 15:46 95/51 94 L 01/16/20 15:31 101/58 97 01/16/20 15:09 96/54 97 01/16/20 12:06 01/16/20 10:33 130/58 96 01/16/20 09:40 100 Intake and Output 01/16/20 01/17/20 01/17/20 22:59 06:59 14:59 Intake Total 905 600 Balance 905 600 Intake: IV 200 Intake, IV Titration 225 600 Amount Sodium Chloride 0.9% 1, 225 600 000 ml @ 75 mls/hr IV . [id number] [facility] Rx#:[id number] Oral 480 Other: Voiding Method Toilet Toilet # Voids 2 1 Gen: This is a 59-year-old female. Patient is resting in bed appears to be comfortable and in no acute distress. HEENT: Head is atraumatic, normocephalic. Pupils equal, round. Sclerae is anicteric. NECK: Supple. No JVD. No lymphadenopathy. No thyromegaly. LUNGS: Clear to auscultation. No wheezes or rhonchi. No intercostal retractions. HEART: Regular rate and rhythm. No murmur. ABDOMEN: Soft. Bowel sounds are present. No masses. Mild right sided tenderness. EXTREMITIES: No pedal edema. No calf tenderness. Dorsalis pedis +2 bilaterally. NEUROLOGICAL: Patient is awake, alert and oriented x3. Cranial nerves 2 through 12 are grossly intact. Results CBC & Chem 7: 01/17/20 05:22 01/17/20 05:22 Labs: Abnormal Lab Results - Last 24 Hours (Table) 01/17/20 01/17/20 Range/Units 05:22 05:22 WBC 11.4 H (3.8-10.6) k/uL Neutrophils # 9.1 H (1.3-7.7) k/uL Sodium 133 L (137-145) mmol/L Chloride 110 H (98-107) mmol/L Carbon Dioxide 21 L (22-30) mmol/L Calcium 7.8 L (8.4-10.2) mg/dL Assessment and Plan Plan: 1. Acute ruptured appendicitis status post laparoscopic appendectomy, postop day #1. Patient will be started on Zosyn IV piggyback every 8 hours. Continue current pain management, Zofran as needed for nausea, incentive spirometry to reduce incidence of atelectasis and hospital-acquired pneumonia, IV fluids at 75 mL per hour. Diet is regular for lunch today. 2. Hyperlipidemia. Patient is on simvastatin 20 mg at bedtime at home. 3. Generalized anxiety disorder. Continue lorazepam 0.5 mg twice daily. 4. Tobacco use and dependence. 5. GI prophylaxis. Protonix. 6. DVT prophylaxis. Lovenox 40 mg daily. CODE STATUS: Full code Discharge plan: home Impression and plan of care have been directed as dictated by the signing physi cian. Yecenia Stanley nurse practitioner acting as scribe for signing physician.
[2020-01-18] MEDS: PIPERACILLIN-TAZOBACTAM 3.375 GM in SODIUM CHLORIDE 0.9% 100 ML IVPB SCH ×3 (01:38→18:42)
[2020-01-18] MEDS: SODIUM CHLORIDE 0.9% 1,000 ML IV SCH ×2 (01:40→14:50)
[2020-01-18] MEDS: HYDROcodone/APAP 5-325MG 1 EACH TAB PO PRN ×2 (04:57→10:51)
[2020-01-18 06:02] LABS: Basophils % (A) 0 %; Eosinophils % (A) 0 %; HCT 35.5 % (34.0-46.0); HGB 11.4 gm/dL (11.4-16.0); Lymphocytes # (A) 0.9 k/uL (1.0-4.8); Lymphocytes % (A) 8 %; MCH 29.3 pg (25.0-35.0); MCHC 32.2 g/dL (31.0-37.0); MCV 90.8 fL (80.0-100.0); Mean Platelet Volume 9.1; Monocytes # (A) 0.4 k/uL (0-1.0); Monocytes % (A) 4 %; Neutrophils # (A) 9.3 k/uL (1.3-7.7); Neutrophils % (A) 86 %; Platelet Count 179 k/uL (150-450); RBC 3.91 m/uL (3.80-5.40); RDW 12.8 % (11.5-15.5); WBC 10.8 k/uL (3.8-10.6)
[2020-01-18] MEDS: ENOXAPARIN 40 MG/0.4 ML SYRINGE SQ SCH (10:46)
[2020-01-18] MEDS: PANTOPRAZOLE 40 MG TABLET PO SCH (10:46)
--- NOTE | 2020-01-18 12:01 | P.PN ---
Subjective Progress Note Date: 01/18/20 CHIEF COMPLAINT: Abdominal pain HISTORY OF PRESENT ILLNESS: Patient is status post laparoscopic appendectomy. Postop day #2. Patient examined at the bedside. Patient states her pain is tolerable. Tolerating diet. Denies nausea or vomiting. Patient with a low-grade temperature of 99.8 overnight. 98.2 this morning. She is mildly tachycardic. CBC 10.8. PHYSICAL EXAM: VITAL SIGNS: Reviewed. GENERAL: Well-developed in no acute distress. HEENT: No sclera icterus. Extraocular movements grossly intact. Moist buccal mucosa. Head is atraumatic, normocephalic. ABDOMEN: Soft. Nondistended. Appropriate surgical tenderness. Surgical sites clean dry and intact. NEUROLOGIC: Alert and oriented. Cranial nerves II through XII grossly intact. ASSESSMENT: 1. Abdominal pain 2. Acute appendicitis with microperforation PLAN: -Continue diet as tolerated -Pain control -Continue IV antibiotics -Hold discharge today secondary to tachycardia and mild fever. Anticipate discharge home tomorrow Nurse practitioner note has been reviewed by physician. Signing provider agrees with the documented findings, assessment, and plan of care. Objective - Vital Signs Vital signs: Vital Signs Temp 98.2 F 01/18/20 11:28 Pulse 115 H 01/18/20 11:28 Resp 18 01/18/20 11:28 BP 122/67 01/18/20 11:28 Pulse Ox 94 L 01/18/20 11:28 Intake & Output 01/17/20 01/18/20 01/18/20 18:59 06:59 18:59 Intake Total 500 Balance 500 Intake: Intake, IV Titration 500 Amount Piperacillin-Tazobactam 3 200 .375 gm In Sodium Chloride 0.9% 100 ml @ 25 mls/hr IVPB Q8HR [facility] Rx# :[id number] Sodium Chloride 0.9% 1, 300 000 ml @ 75 mls/hr IV . [id number] [facility] Rx#:[id number] Other: Voiding Method Toilet Toilet # Voids 3 1 1 - Labs CBC & Chem 7: 01/18/20 05:30 01/17/20 05:22 Labs: Abnormal Lab Results - Last 24 Hours (Table) 01/18/20 Range/Units 05:30 WBC 10.8 H (3.8-10.6) k/uL Neutrophils # 9.3 H (1.3-7.7) k/uL Lymphocytes # 0.9 L (1.0-4.8) k/uL
--- NOTE | 2020-01-18 14:30 | P.PN ---
Subjective Progress Note Date: 01/18/20 This is a 59-year-old female patient of Dr. Fernandez with past medical history of hyperlipidemia, generalized anxiety disorder, tobacco use and dependence. Patient complains of abdominal pain that started Tong evening on the right side. She denies having any vomiting but the pain continued to worsen and became very intense with radiation to the back. She denies any bowel movement. She denies diarrhea. Patient presented to [facility] emergency center for evaluation CAT scan of the abdomen and pelvis revealed pericecal inflammatory change and a small amount of pericecal fluid without drainable abscess. Appendix is not distinguished supper from this. This could be consistent with acute appendicitis. Simple hepatic cyst. WBC 15.3, hemoglobin 14.3, platelet count 206. Sodium 133, potassium 4.4, chloride 103, CO2 21, BUN 8, creatinine 0.62, blood sugar 127. Liver function tests within normal limits, lipase 815. Patient has been admitted to the [facility] floor under the care of Dr. Peterson status post laparoscopic appendectomy for perforated appendicitis completed yesterday. Temperature max is been 100.7 and white count has improved to 11.4. Pain is currently controlled. She is not passing gas but she is burping frequently. She states she feels a little nauseated. 01/17: Patient states that she is not feeling well today. She states she did not sleep and only about an hour at a time during the night. She states she is eating a little bit but not much. She is passing gas but has not had a bowel movement. She is also complaining of headache. Temperature max 99.8, heart rate has been running between 109 and 115. Blood pressure 122/67, pulse ox 94% on room air. WBC 10.8. Objective - Vital Signs Vital signs: Vital Signs Temp 99.8 F H 01/18/20 04:38 Pulse 109 H 01/18/20 04:38 Resp 20 01/18/20 04:38 BP 113/72 01/18/20 04:38 Pulse Ox 93 L 01/18/20 04:38 Intake & Output 01/17/20 01/18/20 01/18/20 18:59 06:59 18:59 Intake Total 500 Balance 500 Intake: Intake, IV Titration 500 Amount Piperacillin-Tazobactam 3 200 .375 gm In Sodium Chloride 0.9% 100 ml @ 25 mls/hr IVPB Q8HR [facility] Rx# :[id number] Sodium Chloride 0.9% 1, 300 000 ml @ 75 mls/hr IV . [id number] [facility] Rx#:[id number] Other: Voiding Method Toilet # Voids 3 1 - Exam Review of Systems Constitutional: Denies anorexia, Denies chills, reports fatigue, Denies fever, Denies lethargy, Denies weakness, Denies weight loss Eyes: denies blurred vision, denies pain Ears, nose, mouth and throat: Reports headache, Denies nasal congestion, Denies nasal discharge, Denies sore throat, Denies vertigo Cardiovascular: Denies chest pain, Denies decreased exercise tolerance, Denies dyspnea on exertion, Denies edema, Denies leg edema, Denies lightheadedness, Denies shortness of breath, Denies syncope Respiratory: Denies cough, Denies cough with sputum, Denies dyspnea, Denies excessive sputum, Denies hemoptysis, Denies home oxygen, Denies respiratory infections, Denies wheezing Gastrointestinal: Reports abdominal pain, Reports loss of appetite, Denies BRBPR, Denies constipation, Denies diarrhea, Denies hematemesis, Denies hematochezia, Denies jaundice, Denies melena, Denies nausea, Denies vomiting Genitourinary: Denies dysuria, Denies hematuria, Denies urgency, Denies urinary frequency Musculoskeletal: Denies frequent falls, Denies gait dysfunction, Denies muscle weakness, Denies myalgias Integumentary: Denies pruritus, Denies rash, Denies wounds Neurological: Denies change in mentation, Denies change in speech, Denies gait dysfunction, Denies numbness, Denies weakness Psychiatric: Denies anxiety, Denies depression Endocrine: Denies fatigue, Denies weight change Physical examination Gen: This is a 59-year-old female. Patient is resting in bed appears to be in no acute distress. HEENT: Head is atraumatic, normocephalic. Pupils equal, round. Sclerae is anicteric. NECK: Supple. No JVD. No lymphadenopathy. No thyromegaly. LUNGS: Clear to auscultation. No wheezes or rhonchi. No intercostal retractions. HEART: Regular rate and rhythm. No murmur. ABDOMEN: Soft. Bowel sounds are present. No masses. Mild right sided tenderness. EXTREMITIES: No pedal edema. No calf tenderness. Dorsalis pedis +2 bilaterally. NEUROLOGICAL: Patient is awake, alert and oriented x3. Cranial nerves 2 through 12 are grossly intact. - Labs CBC & Chem 7: 01/18/20 05:30 01/17/20 05:22 Labs: Abnormal Lab Results - Last 24 Hours (Table) 01/18/20 Range/Units 05:30 WBC 10.8 H (3.8-10.6) k/uL Neutrophils # 9.3 H (1.3-7.7) k/uL Lymphocytes # 0.9 L (1.0-4.8) k/uL Assessment and Plan Plan: 1. Acute ruptured appendicitis status post laparoscopic appendectomy, postop day #2. Continue Zosyn IV piggyback every 8 hours. Continue current pain management, Zofran as needed for nausea, incentive spirometry to reduce incidence of atelectasis and hospital-acquired pneumonia, IV fluids discontinued. Regular diet. Leukocytosis is improving. Patient noted to have low-grade fever and tachycardia. Continue to monitor closely. 2. Hyperlipidemia. Patient is on simvastatin 20 mg at bedtime at home. 3. Generalized anxiety disorder. Continue lorazepam 0.5 mg twice daily. 4. Tobacco use and dependence. 5. GI prophylaxis. Protonix. 6. DVT prophylaxis. Lovenox 40 mg daily. CODE STATUS: Full code Discharge plan: home Impression and plan of care have been directed as dictated by the signing physician. Yecenia Stanley nurse practitioner acting as scribe for signing physician.
[2020-01-18 21:03] VITALS: RESP 16
[2020-01-19] MEDS: PIPERACILLIN-TAZOBACTAM 3.375 GM in SODIUM CHLORIDE 0.9% 100 ML IVPB SCH ×2 (00:03→08:19)
[2020-01-19] MEDS: HYDROcodone/APAP 5-325MG 1 EACH TAB PO PRN ×2 (00:10→04:55)
[2020-01-19] MEDS: SODIUM CHLORIDE 0.9% 1,000 ML IV SCH (03:08)
[2020-01-19 04:17] VITALS: BP 111/78; PULSE 88; TEMP 97.9
[2020-01-19] MEDS: PANTOPRAZOLE 40 MG TABLET PO SCH (08:19)
[2020-01-19] MEDS: ENOXAPARIN 40 MG/0.4 ML SYRINGE SQ SCH (08:19)
--- NOTE | 2020-01-19 11:45 | P.DS ---
Providers Date of admission: 01/16/20 10:21 Expected date of discharge: 01/19/20 Attending physician: Hemant Peterson Consults: 01/16/20 15:04 Consult Physician Routine Consulting Provider: Paula Jose Consult Reason/Comments: Medical management Do you want consulting provider notified?: Yes Primary care physician: Vladimir Marlborough Hospital Course: This a 5-year-old female who underwent laparoscopic appendectomy for acute perforated appendicitis. Patient did well postoperatively. Please chart for details. Procedures: Laparoscopic appendectomy Patient Condition at Discharge: Fair Plan - Discharge Summary Discharge Rx Participant: No New Discharge Prescriptions: New Hydrocodone/Acetaminophen [[place] 5-325] 1 tab PO Q6HR PRN #10 tab PRN Reason: Pain Levofloxacin [Levaquin] 500 mg PO DAILY 7 Days #7 tab No Action Simvastatin [Zocor] 20 mg PO HS Naproxen Sodium [Aleve] 440 mg PO DAILY PRN PRN Reason: Pain Umqlwwg-[id number] [id number] [Excedrin] 2 tab PO Q4HR PRN PRN Reason: Migraine Headache LORazepam [Ativan] 0.5 - 1 mg PO BID PRN PRN Reason: Anxiety Discharge Medication List Etjcldr-Qinp-Kdrr [id number] [Excedrin] 2 tab PO Q4HR PRN 01/16/20 [History] LORazepam [Ativan] 0.5 - 1 mg PO BID PRN 01/16/20 [History] Naproxen Sodium [Aleve] 440 mg PO DAILY PRN 01/16/20 [History] Simvastatin [Zocor] 20 mg PO HS 01/16/20 [History] Hydrocodone/Acetaminophen [[place] 5-325] 1 tab PO Q6HR PRN #10 tab 01/17/20 [Rx] Levofloxacin [Levaquin] 500 mg PO DAILY 7 Days #7 tab 01/18/20 [Rx] Follow up Appointment(s)/Referral(s): Vladimir Fernandez DO [Primary Care Provider] - 1 Week Hemant Peterson MD [STAFF PHYSICIAN] - 1 Week Activity/Diet/Wound Care/Special Instructions: No driving while taking [place] No lifting over 10 pounds You may shower. No soaking or tub baths Very light activity until you are reevaluated at your follow up appointment with your surgeon Discharge Disposition: HOME SELF-CARE
--- NOTE | 2020-01-19 13:50 | P.PN ---
Subjective Progress Note Date: 01/19/20 This is a 59-year-old female patient of Dr. Fernandez with past medical history of hyperlipidemia, generalized anxiety disorder, tobacco use and dependence. Patient complains of abdominal pain that started Tong evening on the right side. She denies having any vomiting but the pain continued to worsen and became very intense with radiation to the back. She denies any bowel movement. She denies diarrhea. Patient presented to [facility] emergency center for evaluation CAT scan of the abdomen and pelvis revealed pericecal inflammatory change and a small amount of pericecal fluid without drainable abscess. Appendix is not distinguished supper from this. This could be consistent with acute appendicitis. Simple hepatic cyst. WBC 15.3, hemoglobin 14.3, platelet count 206. Sodium 133, potassium 4.4, chloride 103, CO2 21, BUN 8, creatinine 0.62, blood sugar 127. Liver function tests within normal limits, lipase 815. Patient has been admitted to the [facility] floor under the care of Dr. Peterson status post laparoscopic appendectomy for perforated appendicitis completed yesterday. Temperature max is been 100.7 and white count has improved to 11.4. Pain is currently controlled. She is not passing gas but she is burping frequently. She states she feels a little nauseated. 01/17: Patient states that she is not feeling well today. She states she did not sleep and only about an hour at a time during the night. She states she is eating a little bit but not much. She is passing gas but has not had a bowel movement. She is also complaining of headache. Temperature max 99.8, heart rate has been running between 109 and 115. Blood pressure 122/67, pulse ox 94% on room air. WBC 10.8. 01/18: Patient has been afebrile with no low-grade fevers for 24 hours. Heart rate in the 80s, blood pressure 111/78, pulse ox 95% on room air. Patient's abdominal pain is controlled. Wounds show no signs of infection. Patient is tolerating diet. Patient is clear from medicine for discharge. Objective - Vital Signs Vital signs: Vital Signs Temp 97.9 F 01/19/20 04:15 Pulse 88 01/19/20 04:15 Resp 16 01/19/20 04:15 BP 111/78 01/19/20 04:15 Pulse Ox 95 01/19/20 04:15 Intake & Output 01/18/20 01/19/20 01/19/20 18:59 06:59 18:59 Intake Total 700 2200 Balance 700 2200 Intake: Intake, IV Titration 700 1000 Amount Piperacillin-Tazobactam 3 100 100 .375 gm In Sodium Chloride 0.9% 100 ml @ 25 mls/hr IVPB Q8HR [facility] Rx# :[id number] Sodium Chloride 0.9% 1, 600 900 000 ml @ 75 mls/hr IV . [id number] [facility] Rx#:[id number] Oral 1200 Other: Voiding Method Toilet Toilet # Voids 1 2 - Exam Review of Systems Constitutional: Denies anorexia, Denies chills, reports fatigue, Denies fever, Denies lethargy, Denies weakness, Denies weight loss Eyes: denies blurred vision, denies pain Ears, nose, mouth and throat: Reports headache, Denies nasal congestion, Denies nasal discharge, Denies sore throat, Denies vertigo Cardiovascular: Denies chest pain, Denies decreased exercise tolerance, Denies dyspnea on exertion, Denies edema, Denies leg edema, Denies lightheadedness, Denies shortness of breath, Denies syncope Respiratory: Denies cough, Denies cough with sputum, Denies dyspnea, Denies excessive sputum, Denies hemoptysis, Denies home oxygen, Denies respiratory infections, Denies wheezing Gastrointestinal: Denies abdominal pain, denies loss of appetite, Denies BRBPR, Denies constipation, Denies diarrhea, Denies hematemesis, Denies hematochezia, Denies jaundice, Denies melena, Denies nausea, Denies vomiting Genitourinary: Denies dysuria, Denies hematuria, Denies urgency, Denies urinary frequency Musculoskeletal: Denies frequent falls, Denies gait dysfunction, Denies muscle weakness, Denies myalgias Integumentary: Denies pruritus, Denies rash, Denies wounds Neurological: Denies change in mentation, Denies change in speech, Denies gait dysfunction, Denies numbness, Denies weakness Psychiatric: Denies anxiety, Denies depression Endocrine: Denies fatigue, Denies weight change Physical examination Gen: This is a 59-year-old female. Patient is resting in bed appears to be in no acute distress. HEENT: Head is atraumatic, normocephalic. Pupils equal, round. Sclerae is an icteric. NECK: Supple. No JVD. No lymphadenopathy. No thyromegaly. LUNGS: Clear to auscultation. No wheezes or rhonchi. No intercostal retractions. HEART: Regular rate and rhythm. No murmur. ABDOMEN: Soft. Bowel sounds are present. No masses. Mild right sided tenderness. Surgical wound sites show no signs of infection. EXTREMITIES: No pedal edema. No calf tenderness. Dorsalis pedis +2 bila terally. NEUROLOGICAL: Patient is awake, alert and oriented x3. Cranial nerves 2 through 12 are grossly intact. - Labs CBC & Chem 7: 01/18/20 05:30 01/17/20 05:22 Assessment and Plan Plan: 1. Acute ruptured appendicitis status post laparoscopic appendectomy, postop day #2. Continue Zosyn IV piggyback every 8 hours. Continue current pain management, Zofran as needed for nausea, incentive spirometry to reduce incidence of atelectasis and hospital-acquired pneumonia, IV fluids discontinued. Regular diet. Leukocytosis is improving. Patient noted to have low-grade fever and tachycardia which is also improved. Continue to monitor closely. Patient is cleared for discharge from medicine. 2. Hyperlipidemia. Patient is on simvastatin 20 mg at bedtime at home. 3. Generalized anxiety disorder. Continue lorazepam 0.5 mg twice daily. 4. Tobacco use and dependence. 5. GI prophylaxis. Protonix. 6. DVT prophylaxis. Lovenox 40 mg daily. CODE STATUS: Full code Discharge plan: home Impression and plan of care have been directed as dictated by the signing physician. Yecenia Stanley nurse practitioner acting as scribe for signing physician.
== END 2020-01-19 13:50 | disposition home or self-care (01) | DRG 340 ==
LOC: EC 07:23 → 5NMEDONC 10:21
PROVIDERS: ADMIT Surgery; ATTEND Surgery
PROC: 0DTJ4ZZ Resection of Appendix, Percutaneous Endoscopic Approach (ICD-10-PCS; principal; 2020-01-16 09:41)
DX: K35.32 Acute appendicitis with perforation, localized peritonitis, and gangrene, without abscess (principal); K76.89 Other specified diseases of liver; E78.5 Hyperlipidemia, unspecified; F17.200 Nicotine dependence, unspecified, uncomplicated; R00.0 Tachycardia, unspecified; F41.1 Generalized anxiety disorder; R51 Headache; Z71.6 Tobacco abuse counseling; Z79.899 Other long term (current) drug therapy; Z98.890 Other specified postprocedural states; Z82.49 Family history of ischemic heart disease and other diseases of the circulatory system; Z82.61 Family history of arthritis; Z83.79 Family history of other diseases of the digestive system; Z84.89 Family history of other specified conditions
CPT/HCPCS: 36415; 74177; 80048; 80053; 81001; 83605; 83690; 85025; 88304; 96361; 96365; 96375; 99285

== ENCOUNTER → 2021-04-04 | Outpatient (CLI) | payer OTHER ==
--- NOTE | 2021-04-04 16:07 | XR ---
EXAMINATION TYPE: XR chest 2V DATE OF EXAM: 04/04/2021 COMPARISON: Chest x-ray 03/01/2019 HISTORY: History tobacco use, bronchitis TECHNIQUE: Frontal and lateral views of the chest are obtained. FINDINGS: There is no focal air space opacity, pleural effusion, or pneumothorax seen. The cardiac silhouette size is within normal limits. Aorta is dense. There is bronchial wall thickening. The oss eous structures are intact. IMPRESSION: Correlate for bronchitis, reactive airways disease.
== END | disposition home or self-care (01) ==
LOC: RADXRMAIN 14:38
PROVIDERS: ATTEND Family Medicine
DX: J40 Bronchitis, not specified as acute or chronic (principal); Z87.891 Personal history of nicotine dependence
CPT/HCPCS: 71046

== ENCOUNTER 2021-07-04 17:26 | Observation (INO) | payer OTHER ==
[2021-07-04] MEDS ORDERED: NITROGLYCERIN OINT 1 INCH/GM PACKET TOPICAL STA (17:51)
[2021-07-04] MEDS ORDERED: ASPIRIN 81 MG PO STA (17:51)
[2021-07-04 18:04] LABS: Basophils % (A) 1 %; Eosinophils # (A) 0.1 k/uL (0-0.7); Eosinophils % (A) 1 %; HCT 41.7 % (34.0-46.0); HGB 14.1 gm/dL (11.4-16.0); Lymphocytes % (A) 32 %; MCH 30.9 pg (25.0-35.0); MCHC 33.7 g/dL (31.0-37.0); MCV 91.8 fL (80.0-100.0); Mean Platelet Volume 8.8; Monocytes # (A) 0.4 k/uL (0-1.0); Monocytes % (A) 6 %; Neutrophils # (A) 3.7 k/uL (1.3-7.7); Neutrophils % (A) 58 %; Platelet Count 207 k/uL (150-450); RBC 4.55 m/uL (3.80-5.40); RDW 12.4 % (11.5-15.5); WBC 6.3 k/uL (3.8-10.6)
[2021-07-04 18:15] LABS: Albumin 3.9 g/dL (3.5-5.0); Calcium 9.3 mg/dL (8.4-10.2); Potassium 4.4 mmol/L (3.5-5.1); Total Bilirubin 0.4 mg/dL (0.2-1.3); Total Protein 6.8 g/dL (6.3-8.2)
--- NOTE | 2021-07-04 18:17 | XR ---
EXAMINATION TYPE: XR chest 2V DATE OF EXAM: 07/04/2021 COMPARISON: NONE HISTORY: Bronchitis TECHNIQUE: 2 views FINDINGS: Heart and mediastinum are normal. Lungs are clear. Diaphragm is normal. Bony thorax is inta ct. There are chest leads. IMPRESSION: No active cardiopulmonary disease. Normal heart. No change.
[2021-07-04 18:18] LABS: INR 0.9 (<1.2); Partial Thromboplastin Time 24.1 sec (22.0-30.0); Prothrombin Time 9.8 sec (9.0-12.0)
--- NOTE | 2021-07-04 18:35 | ED ---
General Adult HPI - General Chief complaint: Chest Pain Stated complaint: chest pain Time Seen by Provider: 07/04/21 17:30 Source: patient, RN notes reviewed, old records reviewed Mode of arrival: wheelchair Limitations: no limitations - History of Present Illness Initial comments: This is a 61-year-old female who presents emergency department with past medical history significant for smoking and high cholesterol. Patient also has a strong family history of heart disease. Patient states that 3 days she's been having significant chest pressure and some shortness of breath in particular she's noticed her pressure and her shortness of breath worsening with any exertion. Patient denies any recent fever chills or significant cough. Patient denies any palpitations. Patient states she has some slight lightheadedness but no near syncopal episode. Patient denies any abdominal pain. Patient denies any nausea vomiting diarrhea. Patient denies any headache or numbness or weakness. - Related Data Home Medications Medication Instructions Recorded Confirmed [id number] 2 tab PO Q4HR PRN 01/16/20 01/16/20 [Excedrin] LORazepam [Ativan] 0.5 - 1 mg PO BID PRN 01/16/20 01/16/20 Naproxen Sodium [Aleve] 440 mg PO DAILY PRN 01/16/20 01/16/20 Simvastatin [Zocor] 20 mg PO HS 01/16/20 01/16/20 Previous Rx's Medication Instructions Recorded Hydrocodone/Acetaminophen [[place] 1 tab PO Q6HR PRN #10 tab 01/17/20 5-325] Levofloxacin [Levaquin] 500 mg PO DAILY 7 Days #7 tab 01/18/20 Allergies Allergy/AdvReac Type Severity Reaction Status Date / Time No Known Allergies Allergy Verified 07/04/21 17:30 Review of Systems ROS Statement: Those systems with pertinent positive or pertinent negative responses have been documented in the HPI. ROS Other: All systems not noted in ROS Statement are negative. Past Medical History Past Medical History: Hyperlipidemia History of Any Multi-Drug Resistant Organisms: None Reported Past Surgical History: Appendectomy, Tonsillectomy Past Psychological History: Anxiety Smoking Status: Current every day smoker Past Alcohol Use History: Occasional Past Drug Use History: None Reported - Past Family History Father Family Medical History: Hearing Disorder / Deafness, Hyperlipidemia Additional Family Medical History / Comment(s): Father at age 65 from a myocardial infarction. Mother Family Medical History: Rheumatoid Arthritis (RA) Additional Family Medical History / Comment(s): Mother at age 66 from a perforated bowel with history of rheumatoid arthritis. Brother(s) Additional Family Medical History / Comment(s): Patient has 1 brother alive and he has suffered from a myocardial infarction. Sister(s) Additional Family Medical History / Comment(s): Patient has 3 sisters with no major medical problems. Patient has 1 son and 1 daughter with no major medical problems. General Exam - General Exam Comments Initial Comments: GENERAL: Patient is well-developed and well-nourished. Patient is nontoxic and well- hydrated and is in mild distress. ENT: Neck is soft and supple. No significant lymphadenopathy is noted. Oropharynx is clear. Moist mucous membranes. Neck has full range of motion without eliciting any pain. EYES: The sclera were anicteric and conjunctiva were pink and moist. Extraocular movements were intact and pupils were equal round and reactive to light. Eyelids were unremarkable. PULMONARY: Unlabored respirations. Good breath sounds bilaterally. No audible rales rhonchi or wheezing was noted. CARDIOVASCULAR: There is a regular rate and rhythm without any murmurs gallops or rubs. ABDOMEN: Soft and nontender with normal bowel sounds. SKIN: Skin is clear with no lesions or rashes and otherwise unremarkable. NEUROLOGIC: Patient is alert and oriented x3. Cranial nerves II through XII are grossly intact. Motor and sensory are also intact. Normal speech, volume and content. Symmetrical smile. MUSCULOSKELETAL: Normal extremities with adequate strength and full range of motion. No lower extremity swelling or edema. No calf tenderness. LYMPHATICS: No significant lymphadenopathy is noted PSYCHIATRIC: Normal psychiatric evaluation. Limitations: no limitations Course Vital Signs 07/04/21 17:30 Temperature 98.0 F Pulse Rate 85 Respiratory 18 Rate Blood Pressure 118/62 O2 Sat by Pulse 98 Oximetry Medical Decision Making - Medical Decision Making EKG shows normal sinus rhythm at 79 bpm VT interval 150 QRS 72 QT interval 350 QTC is 411. Patient's EKG shows no ST segment elevation or depression. Patient's chest x-ray showed no acute abnormalities. Patient continued to have some chest pain so I admitted the patient put the patient on heparin and I consult to cardiology. I spoke with Dr. Oropeza and she was in agreement with admission. I continued heparin Nitropaste on the floor. - Lab Data Result diagrams: 07/04/21 17:58 07/04/21 17:58 Lab Results 07/04/21 07/04/21 07/04/21 Range/Units 17:58 17:58 17:58 WBC 6.3 (3.8-10.6) k/uL RBC 4.55 (3.80-5.40) m/uL Hgb 14.1 (11.4-16.0) gm/dL Hct 41.7 (34.0-46.0) % MCV 91.8 (80.0-100.0) fL MCH 30.9 (25.0-35.0) pg MCHC 33.7 (31.0-37.0) g/dL RDW 12.4 (11.5-15.5) % Plt Count 207 (150-450) k/uL MPV 8.8 Neutrophils % 58 % Lymphocytes % 32 % Monocytes % 6 % Eosinophils % 1 % Basophils % 1 % Neutrophils # 3.7 (1.3-7.7) k/uL Lymphocytes # 2.0 (1.0-4.8) k/uL Monocytes # 0.4 (0-1.0) k/uL Eosinophils # 0.1 (0-0.7) k/uL Basophils # 0.0 (0-0.2) k/uL PT 9.8 (9.0-12.0) sec INR 0.9 (<1.2) APTT 24.1 (22.0-30.0) sec D-Dimer 0.29 (<0.60) mg/L FEU Sodium 139 (137-145) mmol/L Potassium 4.4 (3.5-5.1) mmol/L Chloride 109 H (98-107) mmol/L Carbon Dioxide 22 (22-30) mmol/L Anion Gap 8 mmol/L BUN 14 (7-17) mg/dL Creatinine 1.11 H (0.52-1.04) mg/dL Est GFR (CKD-EPI)AfAm 62 (>60 ml/min/1.73 sqM) Est GFR (CKD-EPI)NonAf 54 (>60 ml/min/1.73 sqM) Glucose 115 H (74-99) mg/dL Calcium 9.3 (8.4-10.2) mg/dL Magnesium 2.0 (1.6-2.3) mg/dL Total Bilirubin 0.4 (0.2-1.3) mg/dL AST 28 (14-36) U/L ALT 30 (4-34) U/L Alkaline Phosphatase 36 L (38-126) U/L Troponin I (0.000-0.034) ng/mL Total Protein 6.8 (6.3-8.2) g/dL Albumin 3.9 (3.5-5.0) g/dL 07/04/21 Range/Units 17:58 WBC (3.8-10.6) k/uL RBC (3.80-5.40) m/uL Hgb (11.4-16.0) gm/dL Hct (34.0-46.0) % MCV (80.0-100.0) fL MCH (25.0-35.0) pg MCHC (31.0-37.0) g/dL RDW (11.5-15.5) % Plt Count (150-450) k/uL MPV Neutrophils % % Lymphocytes % % Monocytes % % Eosinophils % % Basophils % % Neutrophils # (1.3-7.7) k/uL Lymphocytes # (1.0-4.8) k/uL Monocytes # (0-1.0) k/uL Eosinophils # (0-0.7) k/uL Basophils # (0-0.2) k/uL PT (9.0-12.0) sec INR (<1.2) APTT (22.0-30.0) sec D-Dimer (<0.60) mg/L FEU Sodium (137-145) mmol/L Potassium (3.5-5.1) mmol/L Chloride (98-107) mmol/L Carbon Dioxide (22-30) mmol/L Anion Gap mmol/L BUN (7-17) mg/dL Creatinine (0.52-1.04) mg/dL Est GFR (CKD-EPI)AfAm (>60 ml/min/1.73 sqM) Est GFR (CKD-EPI)NonAf (>60 ml/min/1.73 sqM) Glucose (74-99) mg/dL Calcium (8.4-10.2) mg/dL Magnesium (1.6-2.3) mg/dL Total Bilirubin (0.2-1.3) mg/dL AST (14-36) U/L ALT (4-34) U/L Alkaline Phosphatase (38-126) U/L Troponin I <0.012 (0.000-0.034) ng/mL Total Protein (6.3-8.2) g/dL Albumin (3.5-5.0) g/dL Critical Care Time Critical Care Time: Yes Total Critical Care Time: 35 Disposition Clinical Impression: Unstable angina pectoris Disposition: ADMITTED IP TO THIS HOSP Referrals: Vladimir Fernandez DO [Primary Care Provider] - 1-2 days Time of Disposition: 18:35
[2021-07-04] MEDS ORDERED: HEPARIN SODIUM 1,000 UN/ML (10ML VL) IV ONE (18:39)
[2021-07-04] MEDS ORDERED: NITROGLYCERIN SL TABS 0.4 MG TAB SUBLINGUAL PRN (18:39)
[2021-07-04] MEDS ORDERED: HEPARIN SOD,PORK IN 0.45% NACL 25,000 UNIT in 0.45% NACL 1 250ML.BAG IV SCH (18:45)
[2021-07-04] MEDS: NITROGLYCERIN OINT 1 INCH/GM PACKET TOPICAL SCH (23:44)
[2021-07-05 02:39] VITALS: RESP 16
[2021-07-05] MEDS: NITROGLYCERIN OINT 1 INCH/GM PACKET TOPICAL SCH ×2 (04:52→13:11)
--- NOTE | 2021-07-05 08:09 | P.CRDCN ---
History of Present Illness Consult date: 07/05/21 Chief complaint: Chest pain History of present illness: This is a very pleasant 61-year-old female patient with a past medical history significant for smoking as well as dyslipidemia was admitted to the observational unit for further evaluation of chest discomfort. the patient presented to the emergency department last night complaining of chest discomfort for the last several months. She describes the discomfort as a dull in the middle of the chest without any radiation to the arms or neck or shoulder or back and without any associated symptoms of shortness of breath or sweating or dizziness or lightheadedness or any presyncope or syncope clearly the patient states that the chest discomfort is not exertionally related. She is a smoker and she does have dyslipidemia as risk factors. No history of coronary artery disease or coronary revascularization. No diabetes. The EKG showed sinus rhythm with nonspecific changes in the septal leads. The cardiac enzymes were checked and came in to be unremarkable. D-dimer was checked and came in to be unremarkable as well. Currently the patient is chest pain-free. Past Medical History Past Medical History: Hyperlipidemia History of Any Multi-Drug Resistant Organisms: None Reported Past Surgical History: Appendectomy, Tonsillectomy Past Anesthesia/Blood Transfusion Reactions: No Reported Reaction Past Psychological History: Anxiety Smoking Status: Current some day smoker Past Alcohol Use History: Occasional Additional Past Alcohol Use History / Comment(s): Patient is a smoker of half a pack per day and has been smoking approximately 45 years. She drinks alcohol occasionally. Past Drug Use History: None Reported - Past Family History Father Family Medical History: Hearing Disorder / Deafness, Hyperlipidemia Additional Family Medical History / Comment(s): Father at age 65 from a myocardial infarction. Mother Family Medical History: Rheumatoid Arthritis (RA) Additional Family Medical History / Comment(s): Mother at age 66 from a perforated bowel with history of rheumatoid arthritis. Brother(s) Additional Family Medical History / Comment(s): Patient has 1 brother alive and he has suffered from a myocardial infarction. Sister(s) Additional Family Medical History / Comment(s): Patient has 3 sisters with no major medical problems. Patient has 1 son and 1 daughter with no major medical problems. Medications and Allergies Home Medications Medication Instructions Recorded Confirmed Type LORazepam [Ativan] 1 mg PO BID PRN 01/16/20 07/04/21 History Simvastatin [Zocor] 20 mg PO HS 01/16/20 07/04/21 History Biotin 10,000 mcg PO DAILY 07/04/21 07/04/21 History Cholecalciferol [Vitamin D3 (25 25 mcg PO DAILY 07/04/21 07/04/21 History Mcg = 1000 Iu)] [place]-3 Fatty Acids/Fish Oil [Fish 1 cap PO DAILY 07/04/21 07/04/21 History Oil 1,000 mg Softgel] Vitamin B Complex 1 cap PO DAILY 07/04/21 07/04/21 History Allergies Allergy/AdvReac Type Severity Reaction Status Date / Time No Known Allergies Allergy Verified 07/04/21 19:06 Physical Exam Vitals: Vital Signs Temp Pulse Pulse Resp BP BP Pulse Ox 07/05/21 02:00 98.1 F 54 L 16 96/44 93 L 07/04/21 22:25 97.8 F 72 18 122/64 97 07/04/21 21:04 97.9 F 74 16 115/73 98 07/04/21 19:22 72 16 107/62 98 07/04/21 17:30 98.0 F 85 18 118/62 98 Intake and Output 07/04/21 07/05/21 07/05/21 22:59 06:59 14:59 Intake Total 67.854 Balance 67.854 Intake: Intake, IV Titration 67.854 Amount Heparin Sod,Pork in 0.45% 67.854 NaCl 25,000 unit In 0.45 % NaCl 1 250ml.bag @ 12 UNITS/KG/HR 8.11 mls/hr IV .Q24H [facility] Rx#: [id number] Other: Voiding Method Toilet # Voids 1 2 Weight 67.585 kg - Constitutional General appearance: no acute distress - Respiratory Respiratory: bilateral: CTA - Cardiovascular Rhythm: regular Heart sounds: normal: S1, S2 Abnormal Heart Sounds: systolic murmur Results 07/04/21 17:58 07/04/21 17:58 Cardiac Enzymes 07/04/21 07/04/21 07/04/21 Range/Units 17:58 17:58 19:15 AST 28 (14-36) U/L Troponin I <0.012 <0.012 (0.000-0.034) ng/mL 07/04/21 Range/Units 22:10 AST (14-36) U/L Troponin I <0.012 (0.000-0.034) ng/mL Coagulation 07/04/21 07/05/21 Range/Units 17:58 02:40 PT 9.8 (9.0-12.0) sec APTT 24.1 >200.0 H* (22.0-30.0) sec CBC 07/04/21 Range/Units 17:58 WBC 6.3 (3.8-10.6) k/uL RBC 4.55 (3.80-5.40) m/uL Hgb 14.1 (11.4-16.0) gm/dL Hct 41.7 (34.0-46.0) % Plt Count 207 (150-450) k/uL Comprehensive Metabolic Panel 07/04/21 Range/Units 17:58 Sodium 139 (137-145) mmol/L Potassium 4.4 (3.5-5.1) mmol/L Chloride 109 H (98-107) mmol/L Carbon Dioxide 22 (22-30) mmol/L BUN 14 (7-17) mg/dL Creatinine 1.11 H (0.52-1.04) mg/dL Glucose 115 H (74-99) mg/dL Calcium 9.3 (8.4-10.2) mg/dL AST 28 (14-36) U/L ALT 30 (4-34) U/L Alkaline Phosphatase 36 L (38-126) U/L Total Protein 6.8 (6.3-8.2) g/dL Albumin 3.9 (3.5-5.0) g/dL Current Medications Generic Name Dose Route Start Last Admin Trade Name Freq PRN Reason Stop Dose Admin Aspirin 325 mg 07/05/21 09:00 Aspirin 325 Mg Tab PO DAILY [facility] Heparin Sodium/Sodium Chloride 250 mls @ 8.11 mls/hr 07/04/21 18:45 07/05/21 05:57 25,000 unit/ Sodium Chloride IV 9 units/kg/hr .Q24H [facility] 6.083 mls/hr Titration Protocol 12 UNITS/KG/HR Nitroglycerin 0.4 mg 07/04/21 18:39 Nitroglycerin Sl Tabs 0.4 Mg Tab SUBLINGUAL Q5M PRN Chest Pain Nitroglycerin 1 inch 07/05/21 00:00 07/05/21 04:52 Nitroglycerin Oint 1 Inch/Gm Packet TOPICAL Not Given Q6HR [facility] Intake and Output 07/04/21 07/05/21 07/05/21 22:59 06:59 14:59 Intake Total 67.854 Balance 67.854 Intake: Intake, IV Titration 67.854 Amount Heparin Sod,Pork in 0.45% 67.854 NaCl 25,000 unit In 0.45 % NaCl 1 250ml.bag @ 12 UNITS/KG/HR 8.11 mls/hr IV .Q24H [facility] Rx#: [id number] Other: Voiding Method Toilet # Voids 1 2 Weight 67.585 kg 07/04/21 17:58 07/04/21 17:58 Assessment and Plan Assessment: Assessment #1 atypical chest discomfort #2 significant history of smoking #3 dyslipidemia Plan #1 acute coronary event was ruled out #2 I will obtain a stress test to rule out severe CAD #3 follow-up with the patient
[2021-07-05 08:13] VITALS: BP 106/72; PULSE 65; TEMP 98.3
[2021-07-05] MEDS ORDERED: ASPIRIN 325 MG TAB PO SCH (09:00)
[2021-07-05] MEDS ORDERED: ACETAMINOPHEN TAB 325 MG TAB PO PRN (09:27)
[2021-07-05] MEDS ORDERED: LORazepam 1 MG TAB PO PRN (12:17)
--- NOTE | 2021-07-05 12:20 | P.HPIM ---
History of Present Illness H&P Date: 07/05/21 Chief Complaint: CHest pain HISTORY AND PHYSICAL AND DISCHARGE SUMMARY: HISTORY OF PRESENT ILLNESS This is a 61-year-old female patient of Dr. Fernandez with past medical history of generalized anxiety disorder, hyperlipidemia. Patient states that she has had chest pain on and off for about a year. She is usually takes Excedrin and this makes it go away. She is not having chest pain on the left side of her testicles across to the sternal area this lasted 3-4 days and Excedrin did not help. She states the pain sometimes goes through to her back. She denies any radiation to her neck or arm. No shortness of breath, no reflux. She does have her gallbladder intact. She denies any abdominal pain, vomiting or diarrhea. She states the pain is still there now it is mild. She also has tenderness to the area. Patient also states that she has panic attacks but stable at this time. Patient came into [facility] emergency center for evaluation. She was found to be afebrile, heart rate 85, blood pressure 118/62, pulse ox 98% on room air. CBC was unremarkable. D-dimer 0.29. Chloride 109 otherwise ar ctrolytes normal. Creatinine 1.11. Blood sugar 115. Liver function tests were normal. Troponin negative on 3 draws. Coronavirus PCR not detected. EKG is a sinus rhythm with nonspecific changes. Chest x-ray reveals no acute cardiopulmonary disease. Patient placed in the observation unit, seen by cardiology and 60 scan stress test came back negative. Patient discharged home in stable condition. REVIEW OF SYSTEMS Constitutional: No fever, no chills, no night sweats. No weight change. No weakness, fatigue or lethargy. No daytime sleepiness. EENT: No headache. No blurred vision or double vision, no loss of vision. No loss of Hearing, no ringing in the ears, no dizziness. No nasal drainage or congestion. No epistaxis. No sore throat. Lungs: No shortness of breath, cough, no sputum production. No wheezing. Cardiovascular: Reports chest pain, no lower extremity edema. No palpitations. No paroxysmal nocturnal dyspnea. No orthopnea. No lightheadedness or dizziness. No syncopal episodes. Abdominal: No abdominal pain. No nausea, vomiting. No diarrhea. No constipation. No bloody or tarry stools.. No loss of appetite. Genitourinary: No dysuria, increased frequency, urgency. No urinary retention. Musculoskeletal: No myalgias. No muscle weakness, no gait dysfunction, no frequent falls. No back pain. No neck pain. Integumentary: No wounds, no lesions. No rash or pruritus. No unusual bruising. No change in hair or nails. Neurologic: No aphasia. No facial droop. No change in mentation. No head injury. No headache. No paralysis. No paresthesia. Psychiatric: No depression. No anxiety. No mood swings. Endocrine: No abnormal blood sugars. No weight change. No excessive sweating or thirst. No cold intolerance. SOCIAL HISTORY Patient is a smoker half a pack per day for 40 years and recently cut down to 5- 6 cigarettes per day. She drinks alcohol occasionally about 2 times per month. She denies any marijuana or street drug use.. FAMILY HISTORY Mother is at age 66 with history of rheumatoid arthritis. Father is at age 65 from myocardial infarction. She has a brother that had a myocardial infarction at 42. Patient has 3 sisters. No cancer in the family.. PHYSICAL EXAMINATION Gen: This is a 61-year-old female. Patient is resting in bed and appears to be comfortable and in no acute distress. HEENT: Head is atraumatic, normocephalic. Pupils equal, round. Sclerae is anicteric. NECK: Supple. No JVD. No lymphadenopathy. No thyromegaly. LUNGS: Clear to auscultation. No wheezes or rhonchi. No intercostal ret ractions. HEART: Regular rate and rhythm. Systolic murmur. ABDOMEN: Soft. Bowel sounds are present. No masses. No tenderness. EXTREMITIES: No pedal edema. No calf tenderness. Dorsalis pedis +2 bi laterally. NEUROLOGICAL: Patient is awake, alert and oriented x3. Cranial nerves 2 through 12 are grossly intact. ASSESSMENT AND PLAN 1. Chest pain, reproducible and musculoskeletal with negative troponins. Consult with cardiology appreciated. 2. Hyperlipidemia. Continue Zocor 20 g at bedtime. 3. Generalized anxiety disorder. Continue Ativan 1 mg twice daily as needed.. Patient placed as an observation status. DISCHARGE PLAN Home. Impression and plan of care have been directed as dictated by the signing physician. Yecenia Stanley nurse practitioner acting as scribe for signing physician. Past Medical History Past Medical History: Hyperlipidemia History of Any Multi-Drug Resistant Organisms: None Reported Past Surgical History: Appendectomy, Tonsillectomy Past Anesthesia/Blood Transfusion Reactions: No Reported Reaction Past Psychological History: Anxiety Smoking Status: Current some day smoker Past Alcohol Use History: Occasional Additional Past Alcohol Use History / Comment(s): Patient is a smoker of half a pack per day and has been smoking approximately 45 years. She drinks alcohol occasionally. Past Drug Use History: None Reported - Past Family History Father Family Medical History: Hearing Disorder / Deafness, Hyperlipidemia Additional Family Medical History / Comment(s): Father at age 65 from a myocardial infarction. Mother Family Medical History: Rheumatoid Arthritis (RA) Additional Family Medical History / Comment(s): Mother at age 66 from a perforated bowel with history of rheumatoid arthritis. Brother(s) Additional Family Medical History / Comment(s): Patient has 1 brother alive and he has suffered from a myocardial infarction. Sister(s) Additional Family Medical History / Comment(s): Patient has 3 sisters with no major medical problems. Patient has 1 son and 1 daughter with no major medical problems. Medications and Allergies Home Medications Medication Instructions Recorded Confirmed Type LORazepam [Ativan] 1 mg PO BID PRN 01/16/20 07/04/21 History Simvastatin [Zocor] 20 mg PO HS 01/16/20 07/04/21 History Biotin 10,000 mcg PO DAILY 07/04/21 07/04/21 History Cholecalciferol [Vitamin D3 (25 25 mcg PO DAILY 07/04/21 07/04/21 History Mcg = 1000 Iu)] [place]-3 Fatty Acids/Fish Oil [Fish 1 cap PO DAILY 07/04/21 07/04/21 History Oil 1,000 mg Softgel] Vitamin B Complex 1 cap PO DAILY 07/04/21 07/04/21 History Allergies Allergy/AdvReac Type Severity Reaction Status Date / Time No Known Allergies Allergy Verified 07/04/21 19:06 Physical Exam Vitals: Vital Signs Temp Pulse Pulse Resp BP BP BP 07/05/21 07:00 98.3 F 65 16 106/72 07/05/21 02:00 98.1 F 54 L 16 96/44 07/04/21 22:25 97.8 F 72 18 122/64 07/04/21 21:04 97.9 F 74 16 115/73 07/04/21 19:22 72 16 107/62 07/04/21 17:30 98.0 F 85 18 118/62 Pulse Ox 07/05/21 07:00 95 07/05/21 02:00 93 L 07/04/21 22:25 97 07/04/21 21:04 98 07/04/21 19:22 98 07/04/21 17:30 98 Intake and Output 07/04/21 07/05/21 07/05/21 22:59 06:59 14:59 Intake Total 67.854 Balance 67.854 Intake: Intake, IV Titration 67.854 Amount Heparin Sod,Pork in 0.45% 67.854 NaCl 25,000 unit In 0.45 % NaCl 1 250ml.bag @ 12 UNITS/KG/HR 8.11 mls/hr IV .Q24H [facility] Rx#: [id number] Other: Voiding Method Toilet # Voids 1 2 Weight 67.585 kg Results CBC & Chem 7: 07/04/21 17:58 07/04/21 17:58 Labs: Abnormal Lab Results - Last 24 Hours (Table) 07/04/21 07/05/21 Range/Units 17:58 02:40 APTT >200.0 H* (22.0-30.0) sec Chloride 109 H (98-107) mmol/L Creatinine 1.11 H (0.52-1.04) mg/dL Glucose 115 H (74-99) mg/dL Alkaline Phosphatase 36 L (38-126) U/L Thrombosis Risk Factor Assmnt - Choose All That Apply Any of the Below Risk Factors Present?: Yes Each Factor Represents 1 point: Obesity (BMI >25) Other Risk Factors: Yes Each Risk Factor Represents 2 Points: Age 61-74 years Other congenital or acquired thrombophilia - If yes, enter type in comment: No Thrombosis Risk Factor Assessment Total Risk Factor Score: 3 Thrombosis Risk Factor Assessment Level: Moderate Risk
--- NOTE | 2021-07-05 12:48 | NM ---
EXAMINATION TYPE: NM stress lexiscan cardiolite DATE OF EXAM: 07/05/2021 COMPARISON: NONE HISTORY: Chest pain TECHNIQUE: After the intravenous administration of 10.2 mCi Tc 99m Sestamibi - Cardiolite resting SP ECT images acquired 100 minutes post injection. The patient received 0.4mg Lexiscan, 25.7 mCi Tc 99m Sestamibi - Stress images obtained [address] injection FINDINGS: Review of stress and rest SPECT images demonstrates no distinct perfusion abnormality. Gated analysi s shows normal wall motion with an estimated left ventricular ejection fraction of 75 %. IMPRESSION: No scintigraphic evidence for reversible ischemia. Consider echocardiographic correlation for elevate d ejection fraction
--- NOTE | 2021-07-05 13:44 | EST ---
EXERCISE STRESS DATE OF SERVICE: July 05, 2021 AGE: 61 SEX: F HT: 5'3" WT: 149 lbs. PROTOCOL: Lexiscan STAGE: DURATION OF EXERCISE: 5 HEART RATE REST: 69 BLOOD PRESSURE REST: 112/62 MAXIMUM HEART RATE ACHIEVED: 118 MAXIMUM BLOOD PRESSURE: 153/92 85% MPHR: 134 100% MPHR: 158 METS: STRESS DATA: Heart rate is 69, pressure is 112/62. Baseline EKG showed sinus mechanism. 0.4 mg of Lexiscan given over 15 seconds per protocol. Max heart rate was 116 beats per minute. Maximum pressure was 155/74 mmHg. Clinically the patient did not have any symptoms and the EKG did not show any significant ST or T-wave abnormalities. CONCLUSION: 1. Nondiagnostic electrocardiogram stress testing in response to Lexiscan. 2. Please follow up on the Cardiolite portion on a separate report from Radiology Department. MMODL / IJN: [id number] /
[2021-07-06 01:35] LABS: Chol/HDL Ratio 3.77; LDL Cholesterol,Calculated 105.8 mg/dL (0.0-131.0); VLDL Calculation 27.2 mg/dL (5.00-40.00)
== END 2021-07-05 14:50 | disposition home or self-care (01) ==
LOC: EC 17:26 → 6NMEDSUR 18:39
PROVIDERS: ADMIT Internal Medicine; ATTEND Internal Medicine
DX: R07.89 Other chest pain (principal); E78.5 Hyperlipidemia, unspecified; E78.00 Pure hypercholesterolemia, unspecified; F17.210 Nicotine dependence, cigarettes, uncomplicated; F41.1 Generalized anxiety disorder; F41.0 Panic disorder [episodic paroxysmal anxiety]; E66.9 Obesity, unspecified; Z68.26 Body mass index [BMI] 26.0-26.9, adult; Z20.822 Contact with and (suspected) exposure to COVID-19; Z79.899 Other long term (current) drug therapy; Z90.49 Acquired absence of other specified parts of digestive tract; Z98.890 Other specified postprocedural states; Z82.2 Family history of deafness and hearing loss; Z83.49 Family history of other endocrine, nutritional and metabolic diseases; Z82.49 Family history of ischemic heart disease and other diseases of the circulatory system; Z82.61 Family history of arthritis; Z83.79 Family history of other diseases of the digestive system
CPT/HCPCS: 96366 ×3; 96376; 96365; 99291; 36415; 93005; 93017; 85379; 80061; 80053; 83735; 84484; 85025; 85610; 85730 ×2; 87635; 71046; 78452; G0378 ×2; A9500; J1644 ×2

== ENCOUNTER → 2024-04-13 | Outpatient (CLI) | payer MEDICARE ==
--- NOTE | 2024-04-14 08:37 | MM ---
Reason for Exam: Screening (asymptomatic). Last mammogram was performed 6 year(s) and 9 month(s) ago. Patient History: Menarche at age 10. First Full-Term at age 23. Postmenopausal. Patient has history of breast feeding. Sister had breast cancer, age 55. Risk Values: [place] 5 year model risk: 3.5%. NCI Lifetime model risk: 12.7%. Prior Study Comparison: 12/11/2006 Screening Mammogram, [facility]. 04/12/2011 Bilateral Screening Mammogram, [facility]. 07/10/2017 Bilateral Screening Mammogram, [facility]. Tissue Density: The breasts are almost entirely fatty. Findings: Analyzed By CAD. There is no suspicious group of microcalcifications or new suspicious mass in either breast. Overall Assessment: Negative, BI-RAD 1 Management: Screening Mammogram of both breasts in 1 year. . Patient should continue monthly self-breast exams. A clinical breast exam by your physician is recommended on an annual basis. This exam should not preclude additional follow-up of suspicious palpable abnormalities. Note on [place] scores and lifetime risk: 1. A [place] score greater than 3% is considered moderate risk. If this is the case, consider specialist referral to assess eligibility for a risk reducing agent. 2. If overall lifetime risk for the development of breast cancer is 20% or higher, the patient may qualify for future screening with alternating mammogram and breast MRI. Electronically signed and approved by: Chirag Schulte M.D. Radiologis
== END | disposition home or self-care (01) ==
LOC: RADMAMWWP 12:56
PROVIDERS: ATTEND Family Medicine
DX: Z12.31 Encounter for screening mammogram for malignant neoplasm of breast (principal); Z80.3 Family history of malignant neoplasm of breast; Z78.0 Asymptomatic menopausal state
CPT/HCPCS: 77063; 77067

== ENCOUNTER → 2024-05-13 | Outpatient (CLI) | payer MEDICARE ==
--- NOTE | 2024-05-13 08:35 | US ---
EXAMINATION TYPE: US abdomen limited DATE OF EXAM: 05/13/2024 COMPARISON: NONE CLINICAL INDICATION: Female, 64 years old with history of R19.01 RUQ PAIN; liver cyst TECHNIQUE: Multiple sonographic images of the right upper quadrant are obtained. FINDINGS: EXAM MEASUREMENTS: Liver Length: 14.1 cm Gallbladder Wall: 0.2 cm CBD: 0.4 cm Right Kidney: 10.2 x 4.2 x 4.6 cm LEARN TO SWIM INSTRUCTOR NOTES: Technical limitations due to large amount of overlying bowel gas Pancreas: appears wnl Liver: anechoic lesion = 5.5 x 6.4 x 5.3cm Gallbladder: no evidence of stones Evidence for sonographic Caballero's sign: no CBD: limited evaluation Right Kidney: thin renal cortex IMPRESSION: Simple cyst within the liver. Renal parenchymal thinning right kidney.
== END | disposition home or self-care (01) ==
LOC: RADUSWWP 07:54
PROVIDERS: ATTEND Family Medicine
DX: K76.89 Other specified diseases of liver (principal)
CPT/HCPCS: 76705